=== PATIENT | female | born 1980 | race American Indian/Alaskan Native ===

== ENCOUNTER 2017-04-05 14:15 | Outpatient (CLI) | payer MEDICAID ==
--- NOTE | 2017-04-05 15:24 | Magnetic Resonance Report ---
MRI scan of brain: History: Seizure. Technique: Multisequence images were obtained without contrast injection. Findings: No evidence of restricted diffusion. Ventricles are normal in size and midline in location. No evidence of acute ischemia, hemorrhage or mass. No extra-axial fluid collection. Normal brainstem and cerebellum. Normal sinuses and mastoid air cells. Impression: Essentially negative MRI scan of brain.
== END 2017-04-05 14:16 | disposition home or self-care (01) ==
LOC: MRI 14:15
PROVIDERS: ATTEND Psychiatry & Neurology Neurology
DX: G40.A19 Absence epileptic syndrome, intractable, without status epilepticus (principal)
CPT/HCPCS: 70551